=== PATIENT | male | born 1945 | race African-American/Black ===

== ENCOUNTER 2016-12-13 16:18 | Observation (INO) | payer SELFPAY ==
[2016-12-13 16:27] VITALS: BP 142/74; PULSE 65; RESP 17; TEMP 98.5; O2SAT 97
[2016-12-13 16:30] VITALS: RESP 14; O2SAT 95
--- NOTE | 2016-12-13 16:52 | RADRPT ---
EXAM DATE/TIME: 12/13/2016 16:31 [facility] COMPARISON: No previous studies available for comparison. INDICATIONS : Altered mental status today, unresponsive. RADIATION DOSE: 56.35 CTDIvol (mGy) MEDICAL HISTORY : Non-responsive. SURGICAL HISTORY : Non-responsive. ENCOUNTER: Initial ACUITY: 1 day PAIN SCALE: Non-responsive LOCATION: Bilateral head TECHNIQUE: Multiple contiguous axial images were obtained of the head. Using automated exposure control and adj ustment of the mA and/or kV according to patient size, radiation dose was kept as low as reasonably a chievable to obtain optimal diagnostic quality images. DICOM format image data is available electro nically for review and comparison. FINDINGS: CEREBRUM: Extensive periventricular low attenuation change involving both cerebral hemispheres. Area of encepha lomalacia involving the left upper parietal lobe. Area of encephalomalacia involving the insular sonali ex. The ventricles are normal for age. No evidence of midline shift, mass lesion, hemorrhage or acut e infarction. No extra-axial fluid collections are seen. POSTERIOR FOSSA: The cerebellum and brainstem are intact. The 4th ventricle is midline. The cerebellopontine angle i s unremarkable. EXTRACRANIAL: The visualized portion of the orbits is intact. The visualized portions of the left maxillary sinus a re completely opacified. SKULL: The calvaria is intact. No evidence of skull fracture. CONCLUSION: 1. No acute intracranial abnormality. 2. Extensive chronic small vessel ischemic change. 3. Encephalomalacia involving the MCA territory on the left. 4. Left maxillary sinus disease. Christoph Coleman Jr., MD on December 13, 2016 at 16:48 Board Certified Radiologist. This report was verified electronically.
--- NOTE | 2016-12-13 16:54 | RADRPT ---
EXAM DATE/TIME: 12/13/2016 16:46 [facility] COMPARISON: No previous studies available for comparison. INDICATIONS : Syncope. Possible stroke. MEDICAL HISTORY : Unobtainable. SURGICAL HISTORY : Unobtainable. ENCOUNTER: Initial ACUITY: 1 day PAIN SCORE: Non-responsive. LOCATION: Bilateral chest FINDINGS: The heart is mildly enlarged. The lungs demonstrate chronic interstitial changes but are otherwise cl ear. The bony structures are grossly intact. CONCLUSION: 1. Cardiomegaly. No acute abnormality identified. Julien Means MD on December 13, 2016 at 16:52 Board Certified Radiologist. This report was verified electronically.
[2016-12-13 17:51] LABS: AUTOMATED NEUTROPHIL # 4.2 TH/MM3 (1.8-7.7); BASOPHIL % 0.6 % (0.0-2.0); EOSINOPHIL # 0.1 TH/MM3 (0-0.4); EOSINOPHIL % 1.3 % (0.0-4.0); HEMATOCRIT 43.6 % (39.0-51.0); LYMPH % 19.6 % (9.0-44.0); LYMPHOCYTE # 1.1 TH/MM3 (1.0-4.8); MEAN CELL VOLUME 76.3 FL (80.0-100.0); MEAN CORPUSCULAR HEMOGLOBIN 24.8 PG (27.0-34.0); MEAN CORPUSCULAR HGB CONC 32.5 % (32.0-36.0); MONO % 6.2 % (0.0-8.0); NEUT % 72.3 % (16.0-70.0); PLATELET COUNT 226 TH/MM3 (150-450); RED BLOOD COUNT 5.71 MIL/MM3 (4.50-5.90); RED CELL DISTRIBUTION WIDTH 14.9 % (11.6-17.2); WHITE BLOOD COUNT 5.8 TH/MM3 (4.0-11.0)
[2016-12-13 17:52] LABS: ALT (GPT) 15 U/L (12-78)
[2016-12-13 17:53] LABS: HEMO FLAGS AUTO DIFF
[2016-12-13 17:56] LABS: INTERNATIONAL NORMALIZED RATIO 0.9 RATIO; PROTHROMBIN TIME - PATIENT 10.3 SEC (9.8-11.6)
[2016-12-13 18:03] LABS: ALKALINE PHOSPHATASE 106 U/L (45-117); ANION GAP 7 MEQ/L (5-15); AST (GOT) 27 U/L (15-37); BICARBONATE 26.9 MEQ/L (21.0-32.0); BLOOD UREA NITROGEN 14 MG/DL (7-18); CHLORIDE 106 MEQ/L (98-107); CREATINE KINASE 101 U/L (39-308); GLOMERULAR FILTRATION RATE 89 ML/MIN (>89); SODIUM (NA) 140 MEQ/L (136-145); TOTAL BILIRUBIN ADULT 0.4 MG/DL (0.2-1.0)
--- NOTE | 2016-12-13 18:11 | PD ---
HPI Chief Complaint: Seizure Time Seen by Provider: 16:30 Travel History International Travel<30 days: No Contact w/Intl Traveler<30days: No Traveled to known affect area: No History of Present Illness HPI 71-year-old male came to the emergency room brought by EMS after a witnessed syncopal episode while he was sitting with his . Patient was in the [facility] and was admitted there one week ago after a stroke from [facility]. As per the he has had expressive aphasia since the stroke. This has been very frustrating for him and he has been upset for past couple days. Was trying to explain something to her and when she didn't understand he started getting upset. Soon after that he seemed like he went to sleep and when she tried to wake him up he started to vomit. And after that he got unresponsive. The called the [facility] staff who called 911. When EMS arrived as per them his GCS was 6. On route GCS started to improve and got up to 12 or 13. Given his aphasia it was difficult to get much answer from him. Instead been stable. He was incontinent as per EMS. No lid bite her tongue bite. No previous history of seizures. [facility] Past Medical History Narrative Medical List of his past medical, surgical, social and family history is reviewed from the nursing note. Social History Tobacco Use: No Allergies-Medications (Allergen,Severity, Reaction): Coded Allergies: No Known Allergies (Unverified , 12/13/16) Comments No known drug allergies. Reported Meds & Prescriptions Reported Meds & Active Scripts Active Reported Amlodipine (Amlodipine Besylate) 10 Mg Tab 10 Mg PO DAILY Aspirin 325 Mg Tab 325 Mg PO DAILY Docusate Sodium 100 Mg Cap 100 Mg PO BID Lisinopril 2.5 Mg Tab 2.5 Mg PO DAILY Atorvastatin (Atorvastatin Calcium) 40 Mg Tab 40 Mg PO HS Omeprazole 20 Mg Cap Narrative Medication Awaiting for the nurse to do the medical reconciliation. Review of Systems Except as stated in HPI: all other systems reviewed are Neg Neurologic: Positive: Change in Mentation Physical Exam Narrative GENERAL: Eyes closed, maintaining his respirations, nonverbal, intact corneal reflex SKIN: Focused skin assessment warm/dry. HEAD: Atraumatic. Normocephalic. EYES: Pupils equal and round. No scleral icterus. No injection or drainage. ENT: No nasal bleeding or discharge. Mucous membranes pink and moist. NECK: Trachea midline. No JVD. CARDIOVASCULAR: Regular rate and rhythm. No murmur appreciated. RESPIRATORY: No accessory muscle use. Clear to auscultation. Breath sounds equal bilaterally. GASTROINTESTINAL: Abdomen soft, non-tender, nondistended. Hepatic and splenic margins not palpable. MUSCULOSKELETAL: No obvious deformities. No clubbing. No cyanosis. No edema. NEUROLOGICAL: Unable to assess GCS given the fact that patient keeps his eyes closed but when I try to open them he tries to squeeze them tight shot. Corneal reflexes present. Patient is maintaining his airway. He is nonverbal and hence difficult to assess speech. PSYCHIATRIC: Unable to assess Data Data Last Documented VS Orders Orders Electrocardiogram (12/13/16 16:30) Ammonia (12/13/16 16:30) Complete Blood Count With Diff (12/13/16 16:30) Comprehensive Metabolic Panel (12/13/16 16:30) Creatine Kinase (Cpk) (12/13/16 16:30) Prothrombin Time / Inr (Pt) (12/13/16 16:30) Troponin I (12/13/16 16:30) Thyroid Stimulating Hormone (12/13/16 16:30) Chest, Single Ap (12/13/16 16:30) Ct Brain W/O Iv Contrast(Rout) (12/13/16 16:30) Blood Glucose (12/13/16 16:30) Ecg Monitoring (12/13/16 16:30) Iv Access Insert/Monitor (12/13/16 16:30) Oximetry (12/13/16 16:30) ^ Saline Lock (12/13/16 16:32) Admit Order (Ed Use Only) (12/13/16 18:47) Labs Laboratory Tests Test 12/13/16 17:15 White Blood Count 5.8 TH/MM3 Red Blood Count 5.71 MIL/MM3 Hemoglobin 14.2 GM/DL Hematocrit 43.6 % Mean Corpuscular Volume 76.3 FL Mean Corpuscular Hemoglobin 24.8 PG Mean Corpuscular Hemoglobin Concent 32.5 % Red Cell Distribution Width 14.9 % Platelet Count 226 TH/MM3 Mean Platelet Volume 8.4 FL Neutrophils (%) (Auto) 72.3 % Lymphocytes (%) (Auto) 19.6 % Monocytes (%) (Auto) 6.2 % Eosinophils (%) (Auto) 1.3 % Basophils (%) (Auto) 0.6 % Neutrophils # (Auto) 4.2 TH/MM3 Lymphocytes # (Auto) 1.1 TH/MM3 Monocytes # (Auto) 0.4 TH/MM3 Eosinophils # (Auto) 0.1 TH/MM3 Basophils # (Auto) 0.0 TH/MM3 CBC Comment AUTO DIFF Differential Comment AUTO DIFF CONFIRMED Platelet Estimate NORMAL Platelet Morphology Comment CLUMPED Prothrombin Time 10.3 SEC Prothromb Time International Ratio 0.9 RATIO Blood Urea Nitrogen 14 MG/DL Creatinine 1.00 MG/DL Random Glucose 104 MG/DL Total Protein 7.5 GM/DL Albumin 3.5 GM/DL Calcium Level 8.5 MG/DL Alkaline Phosphatase 106 U/L Aspartate Amino Transf (AST/SGOT) 27 U/L Alanine Aminotransferase (ALT/SGPT) 15 U/L Total Bilirubin 0.4 MG/DL Sodium Level 140 MEQ/L Potassium Level 4.0 MEQ/L Chloride Level 106 MEQ/L Carbon Dioxide Level 26.9 MEQ/L Anion Gap 7 MEQ/L Estimat Glomerular Filtration Rate 89 ML/MIN Ammonia 40 MCMOL/L Total Creatine Kinase 101 U/L Troponin I LESS THAN 0.02 NG/ML Thyroid Stimulating Hormone 3rd Gen 0.619 uIU/ML MDM Medical Decision Making Medical Screen Exam Complete: Yes Emergency Medical Condition: Yes Medical Record Reviewed: Yes Interpretation(s) Twelve-lead EKG was reviewed by me. Normal sinus rhythm, normal axis, LVH, LV strain pattern. Heart rate of 63 bpm. Differential Diagnosis Intracranial bleed, syncope seizure, seizure and postictal Narrative Course 6:[address] scan does not show any acute bleed. Blood test results of back and within acceptable limits except for pneumonia that slightly elevated. UA is negative. Given the description of what the witnessed I'm concerned of syncopal episode. I would like to admit him for observation for syncope. I've explained this to the and the children and they understand. Procedures EKG Prior to Arrival: Yes Diagnosis Primary Impression: Syncope Qualified Codes: R55 - Syncope and collapse Additional Impression: Altered mental status Qualified Codes: R41.82 - Altered mental status, unspecified Admitting Information Admitting Physician Requests: Observation Scripts Memantine (Namenda) 5 Mg Tab 5 MG PO Q12HR for Dementia, #60 TAB Prov: Julien Riggs MD 12/15/16 Levetiracetam (Keppra) 500 Mg Tab 500 MG PO Q12HR for Seizure, #60 TAB Prov: Julien Riggs MD 12/15/16 Sanjiv Mo MD Dec 13, 2016 18:11
[2016-12-13 18:44] LABS: PLATELET ESTIMATE SMEAR NORMAL (NORMAL); PLATELET MORPHOLOGY CLUMPED (NORMAL); SCAN/DIFF AUTO DIFF CONFIRMED
[2016-12-13] MEDS ORDERED: IOHEXOL 350 MG/ML 10 ML VIAL (for RAD DIAG) IVCONTRAST ONE (18:50)
[2016-12-13] MEDS ORDERED: SODIUM CHLORIDE 0.9% FLUSH 10 ML FLUSH IV FLUSH PRN ×2 (19:00→19:45)
[2016-12-13] MEDS ORDERED: NALOXONE HCL 0.4 MG/ML AMP IV PUSH PRN ×2 (19:00→19:45)
[2016-12-13] MEDS ORDERED: MAGNESIUM HYDROXIDE SUSP 30 ML CUP PO PRN (19:00)
[2016-12-13] MEDS ORDERED: ONDANSETRON HCL 4 MG/2 ML VIAL IVP PRN (19:00)
[2016-12-13] MEDS ORDERED: ASPI325T PO (19:20)
[2016-12-13] MEDS ORDERED: ATOR40TA16 PO (19:20)
[2016-12-13] MEDS ORDERED: OMEP20CA2 (19:20)
[2016-12-13] MEDS ORDERED: LISI2.5T3 PO (19:20)
[2016-12-13] MEDS ORDERED: AMLO10TA2 PO (19:20)
[2016-12-13] MEDS ORDERED: DOCU100C PO (19:20)
[2016-12-13 19:59] VITALS: BP 133/69
[2016-12-13 20:37] VITALS: BP 143/69; PULSE 83; RESP 16; TEMP 97.4; O2SAT 96
[2016-12-13] MEDS: SODIUM CHLORIDE 0.9% FLUSH 10 ML FLUSH IV FLUSH SCH (21:00)
[2016-12-13] MEDS ORDERED: SODIUM CHLORIDE 0.9% FLUSH 10 ML FLUSH IV FLUSH SCH (21:00)
--- NOTE | 2016-12-13 21:17 | HHI.HP ---
[facility] No Primary Care Physician Admission Diagnosis syncope, altered mental status Diagnoses: Travel History International Travel<30 Days: No Contact w/Intl Traveler <30 Da: No Traveled to Known Affected Are: No History of Present Illness hx from patient's family members at the bedside- , daughter, niece? pt himself speaks samoan and understands samoan, but is aphasic/ dysarthric at baseline due to prior CVA. has been angry since tuesday trying to tell, but cant tell what tuesday, and today, family went to see him 1:00p.m today, he was eating took him outside to get air he is trying to explain somehting to family outside getting so mad mom thought he was sleeping looks he then threw up - woke him up from it and she woke him up and he was not responding saw some wet pants ems said pt had urine eyes were closed did not wake up though ems tried to rub his chest \ 2 weeks at [facility] no symptoms that they know of recenlty able to walk , uses a walker right side UE weakness, aphasic soft food, regular consistency liquid ministroke about 2 weeks ago 2 yrs ago- cva- left him with aphasic, Right sided weakness Review of Systems Except as stated in HPI: all other systems reviewed are Neg Past Family Social History Past Medical History CVA - 2 yrs ago CVA- [address] [facility] HTN Enlarged Prostate Past Surgical History TURP Allergies: Coded Allergies: No Known Allergies (Unverified , 12/13/16) Family History htn in family Social History no etoh/ smoking/ drugs Physical Exam Vital Signs Vital Signs Date Time Temp Pulse Resp B/P (MAP) Pulse Ox O2 Delivery O2 Flow Rate FiO2 12/13/16 20:37 97.4 83 16 143/69 (93) 96 12/13/16 19:59 74 18 133/69 (90) 98 12/13/16 16:30 14 95 Room Air 12/13/16 16:30 95 Room Air 12/13/16 16:27 98.5 65 17 142/74 (96) 97 Physical Exam GENERAL: This is a well-nourished, well-developed patient, in no apparent distress. SKIN: No rashes, ecchymoses or lesions. Cool and dry. HEAD: Atraumatic. Normocephalic. No temporal or scalp tenderness. EYES: No scleral icterus. No injection or drainage. ENT: Nose without bleeding, purulent drainage or septal hematoma. Airway patent. NECK: Trachea midline. No JVD CARDIOVASCULAR: Regular rate and rhythm without murmurs, gallops, or rubs. RESPIRATORY: Clear to auscultation. Breath sounds equal bilaterally. No wheezes , rales, or rhonchi. GASTROINTESTINAL: Abdomen soft, non-tender, nondistended. No guarding. MUSCULOSKELETAL: Extremities without clubbing, cyanosis, or edema. No calf tenderness. NEUROLOGICAL: Awake and alert. Dysarthria. Right upper extremity about 3 out of 5. Right lower extremity about 4 out of 5. No facial asymmetry. Not following commands though he seems to understand. Laboratory Laboratory Tests Test 12/13/16 17:15 White Blood Count 5.8 Red Blood Count 5.71 Hemoglobin 14.2 Hematocrit 43.6 Mean Corpuscular Volume 76.3 Mean Corpuscular Hemoglobin 24.8 Mean Corpuscular Hemoglobin Concent 32.5 Red Cell Distribution Width 14.9 Platelet Count 226 Mean Platelet Volume 8.4 Neutrophils (%) (Auto) 72.3 Lymphocytes (%) (Auto) 19.6 Monocytes (%) (Auto) 6.2 Eosinophils (%) (Auto) 1.3 Basophils (%) (Auto) 0.6 Neutrophils # (Auto) 4.2 Lymphocytes # (Auto) 1.1 Monocytes # (Auto) 0.4 Eosinophils # (Auto) 0.1 Basophils # (Auto) 0.0 CBC Comment AUTO DIFF Differential Comment AUTO DIFF CONFIRMED Platelet Estimate NORMAL Platelet Morphology Comment CLUMPED Prothrombin Time 10.3 Prothromb Time International Ratio 0.9 Blood Urea Nitrogen 14 Creatinine 1.00 Random Glucose 104 Total Protein 7.5 Albumin 3.5 Calcium Level 8.5 Alkaline Phosphatase 106 Aspartate Amino Transf (AST/SGOT) 27 Alanine Aminotransferase (ALT/SGPT) 15 Total Bilirubin 0.4 Sodium Level 140 Potassium Level 4.0 Chloride Level 106 Carbon Dioxide Level 26.9 Anion Gap 7 Estimat Glomerular Filtration Rate 89 Ammonia 40 Total Creatine Kinase 101 Troponin I LESS THAN 0.02 Thyroid Stimulating Hormone 3rd Gen 0.619 Result Diagram: 12/13/16 1715 12/13/16 1715 Imaging Last [address] 12/13/16 1630 Signed Impressions: Service Date/Time: Tuesday, December 13, 2016 16:31 - CONCLUSION: 1. No acute intracranial abnormality. 2. Extensive chronic small vessel ischemic change. 3. Encephalomalacia involving the MCA territory on the left. 4. Left maxillary sinus disease. Christoph Coleman Jr., MD Chest X-Ray 12/13/16 1630 Signed Impressions: Service Date/Time: Tuesday, December 13, 2016 16:46 - CONCLUSION: 1. Cardiomegaly. No acute abnormality identified. Julien Means MD Abdomen/Pelvis CT 12/13/16 0000 Signed Impressions: Service Date/Time: Wednesday, December 14, 2016 02:42 - CONCLUSION: 1. No evidence of acute abdominal or pelvic process. No masses are identified. MD Mann Sneed VTE Risk Assessment Caprini VTE Risk Assessment: Mod/High Risk (score >= 2) Caprini Risk Assessment Model Point Value = 1 Point Value = 2 Point Value = 3 Point Value = 5 Age 41-60 Minor surgery BMI > 25 kg/m2 Swollen legs Varicose veins or History of unexplained or recurrent spontaneous Oral contraceptives or hormone replacement Sepsis (< 1 month) Serious lung disease, including pneumonia (< 1 month) Abnormal pulmonary function Acute myocardial infarction Congestive heart failure (< 1 month) History of inflammatory bowel disease Medical patient at bed rest Age 61-74 Arthroscopic surgery Major open surgery (> 45 min) Laparoscopic surgery (> 45 min) Malignancy Confined to bed (> 72 hours) Immobilizing plaster cast Central venous access Age >= 75 History of VTE Family history of VTE Factor V Leiden Prothrombin [id number] Lupus anticoagulant Anticardiolipin antibodies Elevated serum homocysteine Heparin-induced thrombocytopenia Other congenital or acquired thrombophilia Stroke (< 1 month) Elective arthroplasty Hip, pelvis, or leg fracture Acute spinal cord injury (< 1 month) Prophylaxis Regimen Total Risk Factor Score Risk Level Prophylaxis Regimen 0-1 Low Early ambulation 2 Moderate Order ONE of the following: *Sequential Compression Device (SCD) *Heparin 5000 units SQ BID 3-4 Higher Order ONE of the following medications: *Heparin 5000 units SQ TID *Enoxaparin/Lovenox 40 mg SQ daily (WT < 150 kg, CrCl > 30 mL/min) *Enoxaparin/Lovenox 30 mg SQ daily (WT < 150 kg, CrCl > 10-29 mL/min) *Enoxaparin/Lovenox 30 mg SQ BID (WT < 150 kg, CrCl > 30 mL/min) AND/OR *Sequential Compression Device (SCD) 5 or more Highest Order ONE of the following medications: *Heparin 5000 units SQ TID (Preferred with Epidurals) *Enoxaparin/Lovenox 40 mg SQ daily (WT < 150 kg, CrCl > 30 mL/min) *Enoxaparin/Lovenox 30 mg SQ daily (WT < 150 kg, CrCl > 10-29 mL/min) *Enoxaparin/Lovenox 30 mg SQ BID (WT < 150 kg, CrCl > 30 mL/min) AND *Sequential Compression Device (SCD) Assessment and Plan Assessment and Plan Impression: Syncope versus seizures Possible vasovagal syndrome from vomiting Vomiting Limited historian given but he is aphasic/dysarthric History of recurrent CVAs History of BPH Plan: Obtain records from [facility]. This was obtained overnight and reviewed. Patient was started on anticoagulation with aspirin full dose unknown given that his prior infarct was extensive and MCA territory per family. Would consult patient's neurologist who saw him at [facility] EEG. We'll monitor for episodes of vomiting. patient is extremely poor historian. Family stated he has not been communicating verbally since the past 2 [address]. We'll check CT abdomen and pelvis to rule out intra-abdominal etiologies causing vomiting. Resume rest of his home medications. DVT prophylaxis with Lovenox. Discussed Condition With patient, , daughter, nursing staff Jim Alvarado MD Dec 13, 2016 21:17
[2016-12-13] MEDS ORDERED: PILL SPLITTER OTHER PRN (22:00)
[2016-12-13 22:21] VITALS: PULSE 79
[2016-12-13] MEDS: SODIUM CHLOR 0.9% 1000 ML INJ 1,000 ML IV SCH (23:53)
[2016-12-14] VITALS (8 sets, daily range): BP systolic 104–149; BP diastolic 56–91; PULSE 68–87; RESP 16–18; TEMP 97.8–101.7; O2SAT 92–98
[2016-12-14 00:26] LABS: CREATINE KINASE 61 U/L (39-308)
--- NOTE | 2016-12-14 03:02 | RADRPT ---
EXAM DATE/TIME: 12/14/2016 02:42 [facility] COMPARISON: No previous studies available for comparison. INDICATIONS : Diffuse abdominal pain with vomiting. IV CONTRAST: 95 cc Omnipaque 350 (iohexol) IV ORAL CONTRAST: No oral contrast ingested. RADIATION DOSE: 9.28 CTDIvol (mGy) MEDICAL HISTORY : Stroke. Hypertension. SURGICAL HISTORY : Prostatectomy. ENCOUNTER: Initial ACUITY: 1 day PAIN SCALE: Non-responsive LOCATION: Bilateral abdomen TECHNIQUE: Volumetric scanning of the abdomen and pelvis was performed. Using automated exposure control and ad justment of the mA and/or kV according to patient size, radiation dose was kept as low as reasonably achievable to obtain optimal diagnostic quality images. DICOM format image data is available electro nically for review and comparison. FINDINGS: There is left lower lobe atelectasis versus pneumonia. The liver and spleen are free of focal defects . The gallbladder and pancreas demonstrate no abnormality. The adrenal glands are normal. The kidneys demonstrate no evidence of solid renal mass or hydronephrosis. There is a single simple cyst in the left kidney measuring 2 cm No free fluid or abdominal masses are identified. No para-aortic adenopat hy is seen. Examination of the right lower quadrant demonstrates no abnormality. The appendix is iden tified and appears normal. Examination of the pelvis demonstrates no evidence of free fluid or pelvic mass. No abnormally enlarg ed inguinal or retroperitoneal lymph nodes are present. The bladder is unremarkable. The prostate gla nd is moderately enlarged impinging on the bladder base. CONCLUSION: 1. No evidence of acute abdominal or pelvic process. No masses are identified. Elroy Khan MD on December 14, 2016 at 2:57 Board Certified Radiologist. This report was verified electronically.
[2016-12-14 07:26] LABS: AUTOMATED NEUTROPHIL # 15.9 TH/MM3 (1.8-7.7); BASOPHIL % 0.2 % (0.0-2.0); EOSINOPHIL # 0.1 TH/MM3 (0-0.4); EOSINOPHIL % 0.3 % (0.0-4.0); HEMATOCRIT 38.9 % (39.0-51.0); HEMO FLAGS DIFF FINAL; LYMPH % 10.1 % (9.0-44.0); LYMPHOCYTE # 1.9 TH/MM3 (1.0-4.8); MEAN CELL VOLUME 75.4 FL (80.0-100.0); MEAN CORPUSCULAR HEMOGLOBIN 24.9 PG (27.0-34.0); MEAN CORPUSCULAR HGB CONC 33.1 % (32.0-36.0); MONO % 4.1 % (0.0-8.0); NEUT % 85.3 % (16.0-70.0); PLATELET COUNT 216 TH/MM3 (150-450); RED BLOOD COUNT 5.16 MIL/MM3 (4.50-5.90); RED CELL DISTRIBUTION WIDTH 14.7 % (11.6-17.2); WHITE BLOOD COUNT 18.6 TH/MM3 (4.0-11.0)
[2016-12-14 08:02] LABS: ANION GAP 7 MEQ/L (5-15); AST (GOT) 15 U/L (15-37); BICARBONATE 26.2 MEQ/L (21.0-32.0); BLOOD UREA NITROGEN 20 MG/DL (7-18); CHLORIDE 108 MEQ/L (98-107); GLOMERULAR FILTRATION RATE 112 ML/MIN (>89); POTASSIUM 3.9 MEQ/L (3.5-5.1); SODIUM (NA) 141 MEQ/L (136-145)
[2016-12-14 08:03] LABS: ALT (GPT) 17 U/L (12-78)
[2016-12-14] MEDS: SODIUM CHLOR 0.9% 1000 ML INJ 1,000 ML IV SCH ×2 (08:03→21:10)
[2016-12-14 08:07] LABS: ALKALINE PHOSPHATASE 87 U/L (45-117); TOTAL BILIRUBIN ADULT 0.6 MG/DL (0.2-1.0)
[2016-12-14 08:08] LABS: CREATINE KINASE 43 U/L (39-308)
--- NOTE | 2016-12-14 08:39 | PD.CONS ---
History of Present Illness Service Neurology Consult Requested By medical Reason for Consult syncope Primary Care Physician No Primary Care Physician History of Present Illness 71 y/o m admitted for syncope. had recent left mca stroke, aphasic. was upset yesterday. then became unresponsive, incontinent. evac called and brought to [facility] [place], [place]. pt unable to give any hx. ct brain- old left mca stroke. Past Family Social History Past Medical History left mca stroke - 2 yrs ago CVA- 2 weeks ago at [facility] HTN Enlarged Prostate Past Surgical History TURP Allergies: Coded Allergies: No Known Allergies (Unverified , 12/13/16) Family History htn in family Social History no etoh/ smoking/ drugs Review of Systems All other ROS: ROS reviewed as documented in chart Past Family Social History Allergies: Coded Allergies: No Known Allergies (Unverified , 12/13/16) Active Ordered Medications Current Medications Medications (Trade) Dose Ordered Sig/Ivan Route Start Time Stop Time Status Last Admin Sodium Chloride 1,000 ml @ 83 mls/hr Q12H3M IV 12/13/16 20:00 12/13/16 23:53 (NS Flush) 2 ml UNSCH PRN IV FLUSH 12/13/16 19:00 (NS Flush) 2 ml BID IV FLUSH 12/13/16 21:00 12/13/16 21:00 (Zofran Inj) 4 mg Q6H PRN IVP 12/13/16 19:00 (Narcan Inj) 0.4 mg UNSCH PRN IV PUSH 12/13/16 19:00 (Milk Of Magnesia Liq) 30 ml Q12H PRN PO 12/13/16 19:00 (Norvasc) 10 mg DAILY PO 12/14/16 09:00 (Aspirin) 325 mg DAILY PO 12/14/16 09:00 (Lipitor) 40 mg HS PO 12/14/16 21:00 (Colace) 100 mg BID PO 12/14/16 09:00 (Prinivil) 2.5 mg DAILY PO 12/14/16 09:00 (Pill Splitter) 1 ea UNSCH PRN OTHER 12/13/16 22:00 (Lovenox Inj) 40 mg Q24H SQ 12/14/16 09:00 UNV Exam I&O / VS Vital Signs Date Time Temp Pulse Resp B/P (MAP) Pulse Ox O2 Delivery O2 Flow Rate FiO2 12/14/16 08:00 99.0 80 16 121/56 (77) 97 12/14/16 03:19 100.2 87 18 126/60 (82) 94 12/14/16 00:54 101.7 83 18 104/56 (72) 92 12/13/16 22:21 79 12/13/16 20:37 97.4 83 16 143/69 (93) 96 12/13/16 19:59 74 18 133/69 (90) 98 12/13/16 16:30 14 95 Room Air 12/13/16 16:30 95 Room Air 12/13/16 16:27 98.5 65 17 142/74 (96) 97 Exam Comments lying in bed exp>comp aphasia, inconsistently following, eomi, resists pupillary exam, mild rt spastic hemiparesis, withdraws to tactile in all 4 ext, no involuntary movements Review/Management Diagnosis/Plan: (1) Syncope ICD Codes: R55 - Syncope and collapse Status: Acute Plan: poor hx at risk for post-stroke sz's recs eeg mri brain p.t./s.t. swallow exam start iv keppra (2) Chronic ischemic left MCA stroke ICD Codes: I69.30 - Unspecified sequelae of cerebral infarction Status: Chronic Plan: severe aphasia need old records f/u mri brain if feasible Problem Qualifiers (1) Syncope: Qualified Codes: R55 - Syncope and collapse Gaurav Schulz MD Dec 14, 2016 08:39
[2016-12-14] MEDS: SODIUM CHLORIDE 0.9% FLUSH 10 ML FLUSH IV FLUSH SCH ×2 (09:00→21:00)
[2016-12-14] MEDS: LISINOPRIL 5 MG TAB PO SCH (09:00)
[2016-12-14] MEDS: DOCUSATE SODIUM 100 MG CAP PO SCH ×2 (09:00→21:00)
[2016-12-14] MEDS: ASPIRIN 325 MG TAB PO SCH (09:00)
--- NOTE | 2016-12-14 10:41 | HHI.PR ---
Subjective Remarks No recurrence of episodes overnight. Patient is at baseline when seen and cannot provide a good history. Plan for carotid ultrasound, EEG, and PTT today. Objective Vital Signs Date Time Temp Pulse Resp B/P (MAP) Pulse Ox O2 Delivery O2 Flow Rate FiO2 12/14/16 08:00 99.0 80 16 121/56 (77) 97 12/14/16 03:19 100.2 87 18 126/60 (82) 94 12/14/16 00:54 101.7 83 18 104/56 (72) 92 12/13/16 22:21 79 12/13/16 20:37 97.4 83 16 143/69 (93) 96 12/13/16 19:59 74 18 133/69 (90) 98 12/13/16 16:30 14 95 Room Air 12/13/16 16:30 95 Room Air 12/13/16 16:27 98.5 65 17 142/74 (96) 97 Result Diagram: 12/14/16 0715 12/14/16 0715 Objective Remarks GENERAL: NAD, A&Ox1 HEAD: Normocephalic. NECK: Supple, trachea midline. No lymphadenopathy. EYES: No scleral icterus. No injection or drainage. CARDIOVASCULAR: Regular rate and rhythm without murmurs, gallops, or rubs. RESPIRATORY: Breath sounds equal bilaterally. No accessory muscle use. GASTROINTESTINAL: Abdomen soft, non-tender, nondistended. MUSCULOSKELETAL: No cyanosis, or edema. SKIN: Warm and dry. NEURO: No focal neurological deficitis. A/P Problem List: (1) Chronic ischemic left MCA stroke ICD Code: I69.30 - Unspecified sequelae of cerebral infarction Status: Chronic (2) Altered mental status ICD Code: R41.82 - Altered mental status, unspecified Status: Acute (3) Syncope ICD Code: R55 - Syncope and collapse Status: Acute Assessment and Plan Assessment and Plan 71-year-old male admitted for syncope versus seizure Syncope versus seizures EEG pending Carotid ultrasound pending Neurology following Monitor for any recurrence History of recurrent CVA Chronic right-sided deficit Physical therapy Follow clinically History of BPH No change to baseline treatment DVT prophylaxis Lovenox. Problem Qualifiers (1) Altered mental status: Qualified Codes: R41.82 - Altered mental status, unspecified (2) Syncope: Qualified Codes: R55 - Syncope and collapse Julien Riggs MD Dec 14, 2016 10:41
[2016-12-14] MEDS: ENOXAPARIN SODIUM 40 MG/0.4 ML SYRINGE SQ SCH (13:13)
--- NOTE | 2016-12-14 19:28 | MG ---
cc: YEHUDA LINARES MD Lab No: Date: 12/14/16 Age: Sex: M Race: DATE OF [address] Alvarado[address] MEDICAL HISTORY Witnessed syncopal episode, post-stroke expressive aphasia, hypertension. MEDICATIONS 1. Lipitor 2. Lovenox. 3. Norvasc. 4. Aspirin. 5. Lisinopril. DESCRIPTION At the beginning of the EEG recording, the patient was awake with slowing of the background in the theta and delta range. Background is superimposed by excess beta. There is intermittent triphasic waves. There is lower amplitude and generalized more slowing on the left hemisphere. There were no electrographic seizures or epileptiform discharges noted. Photic stimulation did elicit a normal driving response. Hyperventilation was not done. INTERPRETATION This is an abnormal awake and drowsy EEG. The left side slowing and lower amplitude may indicate a structural lesions on the left hemisphere. Triphasic waves may indicate a metabolic encephalopathy and generalized slowing also may indicate a mild to moderate encephalopathy. Excess beta activity is nonspecific finding that may be radicular related to medication adverse effects such as benzos and barbiturate. Absence of electrographic seizures or epileptiform discharges does not exclude the diagnosis of epilepsy. Clinical correlation is recommended. MD EDIS Quevedo/ /6:42 PM /7:15 PM [facility]
[2016-12-14] MEDS ORDERED: ATORVASTATIN 40 MG TAB PO SCH (21:00)
--- NOTE | 2016-12-14 21:07 | EKG ---
Date Performed: 12/13/2016 Time Performed: 16:28:32 PTAGE: 71 years EKG: Sinus rhythm LEFT VENTRICULAR HYPERTROPHY AND ST-T CHANGE ABNORMAL ECG NO PREVIOUS TRACING DOCTOR: Hank Amaya Interpretating Date/Time 12/14/2016 21:05:57
[2016-12-14] MEDS: levETIRAcetam INJ 500 MG in SODIUM CHLORIDE 0.9% INJ 100 ML IV SCH (21:10)
--- NOTE | 2016-12-14 21:25 | RADRPT ---
EXAM DATE/TIME: 12/14/2016 20:08 [facility] COMPARISON: CT BRAIN W/O CONTRAST, December 13, 2016, 16:31. INDICATIONS : Altered mental status. MEDICAL HISTORY : Hypertension. SURGICAL HISTORY : Prostate surgery ENCOUNTER: Initial ACUITY: 1 day PAIN SCORE: 0/10 LOCATION: head TECHNIQUE: Multiplanar, multisequence MRI of the brain was performed without contrast. FINDINGS: There is no evidence for intracranial hemorrhage, mass effect, mass lesions, edema, or extra-axial fl uid collections. There are no signs of acute infarction for technique. The diffusion portion is unre markable. Significant degree of brain atrophy is seen. Significant periventricular white matter lou ges are seen nonspecific mostly consistent with chronic small vessel ischemic changes. There is also extensive encephalomalacia in the left parietal and parts of the temporal lobe. There are lacunar inf arctions bilaterally extending to the brainstem. There is extensive opacification of the left maxilla ry sinus. CONCLUSION: Chronic changes and no evidence of acute infarction. Brett Melendez MD on December 14, 2016 at 21:21 Board Certified Radiologist. This report was verified electronically.
--- NOTE | 2016-12-14 21:26 | RADRPT ---
EXAM DATE/TIME: 12/14/2016 20:08 [facility] COMPARISON: MRI BRAIN W/O CONTRAST, December 14, 2016, 20:08. INDICATIONS : Altered mental status. MEDICAL HISTORY : Hypertension. SURGICAL HISTORY : Prostate surgery. ENCOUNTER: Initial ACUITY: 1 day PAIN SCORE: 0/10 LOCATION: head Please note a normal MRA of the brain does not entirely exclude the possibility of a small aneurysm, nor the possibility of distal intracranial vessel disease. TECHNIQUE: 3D time of flight MRA was performed. Source images, multiplanar STS MIP, and 3D volume MIP reconstru ctions were reviewed. FINDINGS: No significant vascular malformations, vessel truncation or aneurysmal dilatations are seen except fo r moderate atherosclerotic changes involving multiple branches bilaterally mainly the MCAs. CONCLUSION: Moderate atherosclerotic changes of distal branches bilaterally. Brett Melendez MD on December 14, 2016 at 21:23 Board Certified Radiologist. This report was verified electronically.
[2016-12-15 03:44] VITALS: BP 134/72; PULSE 73; RESP 17; TEMP 98.3; O2SAT 97
[2016-12-15] MEDS: levETIRAcetam INJ 500 MG in SODIUM CHLORIDE 0.9% INJ 100 ML IV SCH (06:37)
[2016-12-15] MEDS: SODIUM CHLOR 0.9% 1000 ML INJ 1,000 ML IV SCH (08:09)
--- NOTE | 2016-12-15 08:26 | HHI.PR ---
Review/Management Diagnosis/Plan: (1) Vascular dementia ICD Codes: F01.50 - Vascular dementia without behavioral disturbance Status: Chronic Plan: will start namenda 5mg bid add aricept after- outpatient (2) Syncope ICD Codes: R55 - Syncope and collapse Status: Acute Plan: poor hx at risk for post-stroke sz's mri- old infarct. mra brain- advanced atherosclerotic dz recs eeg- no active sz's ?elevated wbc- per medical. consider u/a lactulose for elevated nh3 p.t./s.t. swallow exam iv keppra- can change to po once tolerating d/c planning today (3) Chronic ischemic left MCA stroke ICD Codes: I69.30 - Unspecified sequelae of cerebral infarction Status: Chronic Plan: comp aphasia moderate sized left mca stroke inf division and left midline, mild on right- all old Subjective Subjective Comments No acute events reported Active Medications Current Medications Medications (Trade) Dose Ordered Sig/Ivan Route Start Time Stop Time Status Last Admin Sodium Chloride 1,000 ml @ 83 mls/hr Q12H3M IV 12/13/16 20:00 12/14/16 21:10 (NS Flush) 2 ml UNSCH PRN IV FLUSH 12/13/16 19:00 (NS Flush) 2 ml BID IV FLUSH 12/13/16 21:00 12/13/16 21:00 (Zofran Inj) 4 mg Q6H PRN IVP 12/13/16 19:00 (Narcan Inj) 0.4 mg UNSCH PRN IV PUSH 12/13/16 19:00 (Milk Of Magnesia Liq) 30 ml Q12H PRN PO 12/13/16 19:00 (Norvasc) 10 mg DAILY PO 12/14/16 09:00 (Aspirin) 325 mg DAILY PO 12/14/16 09:00 (Lipitor) 40 mg HS PO 12/14/16 21:00 (Colace) 100 mg BID PO 12/14/16 09:00 (Prinivil) 2.5 mg DAILY PO 12/14/16 09:00 (Pill Splitter) 1 ea UNSCH PRN OTHER 12/13/16 22:00 (Lovenox Inj) 40 mg Q24H SQ 12/14/16 10:00 12/14/16 13:13 Levetriacetam 500 mg/Sodium Chloride 105 ml @ 400 mls/hr Q12H IV 12/14/16 17:00 12/15/16 06:37 Allergies Allergies Coded Allergies No Known Allergies ([id number]/17) Review of Systems All other ROS: ROS reviewed as documented in chart Exam I&O / VS 12/15/16 12/15/16 12/16/16 15:00 23:00 07:00 Intake Total 105 ml Balance 105 ml IV Total 105 ml Vital Signs Date Time Temp Pulse Resp B/P (MAP) Pulse Ox O2 Delivery O2 Flow Rate FiO2 12/15/16 03:44 98.3 73 17 134/72 (92) 97 12/14/16 23:30 98.5 74 18 139/91 (107) 98 12/14/16 21:07 98.7 78 18 149/80 (103) 92 12/14/16 21:00 77 12/14/16 16:00 97.8 78 18 142/63 (89) 98 12/14/16 12:00 99.7 68 18 119/58 (78) 95 Exam Comments more alert, comprehensive aphasia today, non-sensical speech, not following, eomi, ou 3-2mm, mild rt spastic hemiparesis, withdraws to tactile in all 4 ext, no involuntary movements Problem Qualifiers (1) Vascular dementia: Qualified Codes: F01.51 - Vascular dementia with behavioral disturbance (2) Syncope: Qualified Codes: R55 - Syncope and collapse Gaurav Schulz MD Dec 15, 2016 08:26
[2016-12-15 08:35] LABS: AUTOMATED NEUTROPHIL # 7.5 TH/MM3 (1.8-7.7); BASOPHIL % 0.4 % (0.0-2.0); EOSINOPHIL # 0.2 TH/MM3 (0-0.4); EOSINOPHIL % 2.2 % (0.0-4.0); HEMATOCRIT 38.2 % (39.0-51.0); HEMO FLAGS DIFF FINAL; LYMPH % 16.1 % (9.0-44.0); LYMPHOCYTE # 1.6 TH/MM3 (1.0-4.8); MEAN CELL VOLUME 75.8 FL (80.0-100.0); MEAN CORPUSCULAR HEMOGLOBIN 25.2 PG (27.0-34.0); MEAN CORPUSCULAR HGB CONC 33.2 % (32.0-36.0); MONO % 5.9 % (0.0-8.0); NEUT % 75.4 % (16.0-70.0); PLATELET COUNT 201 TH/MM3 (150-450); RED BLOOD COUNT 5.04 MIL/MM3 (4.50-5.90)
[2016-12-15 08:42] VITALS: BP 177/81
[2016-12-15] MEDS: DOCUSATE SODIUM 100 MG CAP PO SCH (08:44)
[2016-12-15] MEDS: LISINOPRIL 5 MG TAB PO SCH (08:44)
[2016-12-15] MEDS: SODIUM CHLORIDE 0.9% FLUSH 10 ML FLUSH IV FLUSH SCH (08:45)
[2016-12-15] MEDS: ASPIRIN 325 MG TAB PO SCH (08:45)
[2016-12-15 08:59] VITALS: BP 160/96; PULSE 77; RESP 20; TEMP 97.6; O2SAT 91
[2016-12-15 09:00] LABS: ANION GAP 6 MEQ/L (5-15); AST (GOT) 20 U/L (15-37); BICARBONATE 27.1 MEQ/L (21.0-32.0); BLOOD UREA NITROGEN 12 MG/DL (7-18); CHLORIDE 108 MEQ/L (98-107); GLOMERULAR FILTRATION RATE 157 ML/MIN (>89); POTASSIUM 3.6 MEQ/L (3.5-5.1); SODIUM (NA) 141 MEQ/L (136-145)
[2016-12-15] MEDS ORDERED: MEMANTINE HCL 5 MG TAB PO SCH (09:00)
[2016-12-15] MEDS ORDERED: LACTULOSE SYRUP 20 GM/30 ML CUP PO SCH (09:00)
[2016-12-15 09:02] LABS: ALT (GPT) 13 U/L (12-78)
[2016-12-15 09:05] LABS: ALKALINE PHOSPHATASE 86 U/L (45-117); TOTAL BILIRUBIN ADULT 0.9 MG/DL (0.2-1.0)
[2016-12-15] MEDS ORDERED: NAME5TAB2 PO (09:56)
[2016-12-15] MEDS ORDERED: LEVE500 PO (09:56)
[2016-12-15] MEDS: ENOXAPARIN SODIUM 40 MG/0.4 ML SYRINGE SQ SCH (10:00)
--- NOTE | 2016-12-15 10:01 | HHI.DS ---
Discharge Summary Admission Date Dec 13, 2016 at 18:49 Discharge Date: Dec 15, 2016 Admitting Diagnosis syncope, altered mental status (1) Vascular dementia ICD Code: F01.50 - Vascular dementia without behavioral disturbance Status: Chronic (2) Altered mental status ICD Code: R41.82 - Altered mental status, unspecified Status: Acute Procedures EEG Brief History - From Admission has been angry since tuesday trying to tell, but cant tell what tuesday, and today, family went to see him 1:00p.m today, he was eating took him outside to get air he is trying to explain somehting to family outside getting so mad mom thought he was sleeping looks he then threw up - woke him up from it and she woke him up and he was not responding saw some wet pants ems said pt had urine eyes were closed did not wake up though ems tried to rub his chest \ 2 weeks at [facility] no symptoms that they know of recenlty able to walk , uses a walker right side UE weakness, aphasic soft food, regular consistency liquid ministroke about 2 weeks ago 2 yrs ago- cva- left him with aphasic, Right sided weakness CBC/BMP: 12/15/16 0707 12/15/16 0757 Significant Findings Laboratory Tests Test 12/13/16 17:15 12/13/16 23:50 12/14/16 07:15 12/15/16 07:07 Mean Corpuscular Volume 76.3 FL (80.0-100.0) 75.4 FL (80.0-100.0) 75.8 FL (80.0-100.0) Mean Corpuscular Hemoglobin 24.8 PG (27.0-34.0) 24.9 PG (27.0-34.0) 25.2 PG (27.0-34.0) Neutrophils (%) (Auto) 72.3 % (16.0-70.0) 85.3 % (16.0-70.0) 75.4 % (16.0-70.0) Platelet Morphology Comment CLUMPED (NORMAL) Ammonia 40 MCMOL/L (11-32) Troponin I LESS THAN 0.02 NG/ML LESS THAN 0.02 NG/ML LESS THAN 0.02 NG/ML White Blood Count 18.6 TH/MM3 (4.0-11.0) Hemoglobin 12.8 GM/DL (13.0-17.0) 12.7 GM/DL (13.0-17.0) Hematocrit 38.9 % (39.0-51.0) 38.2 % (39.0-51.0) Neutrophils # (Auto) 15.9 TH/MM3 (1.8-7.7) Blood Urea Nitrogen 20 MG/DL (7-18) Albumin 3.0 GM/DL (3.4-5.0) Calcium Level 8.4 MG/DL (8.5-10.1) Chloride Level 108 MEQ/L (98-107) Test 12/15/16 07:57 Random Glucose 72 MG/DL (74-106) Albumin 3.0 GM/DL (3.4-5.0) Calcium Level 8.3 MG/DL (8.5-10.1) Chloride Level 108 MEQ/L (98-107) Hospital Course Mr. Frances is a 71 year old male. At baseline he has a right hemiplegia and expressive aphasia from a previous CVA. He was brought in by family due to altered mental status. Etiology was possible seizure activity vs. syncope. No findings of arrhythmia or syncopal risk on work up. No CVA on work up. EEG shows abnormality and given his prior CVA and scar tissue, seizure is a likely etiology. Keppra has been started as a treatment. He is back to his prior baseline. He passes a speech therapy swallow evaluation. Medically stable for discharge to home today. Pt Condition on Discharge: Stable Discharge Disposition: Discharge Home Discharge Time: <= 30 minutes Discharge Instructions DIET: Follow Instructions for: As Tolerated, No Restrictions Activities you can perform: Regular-No Restrictions Follow up Referrals: PCP Follow-up - 2 Weeks New Medications: Levetiracetam (Keppra) 500 Mg Tab 500 MG PO Q12HR for Seizure, #60 TAB Memantine (Namenda) 5 Mg Tab 5 MG PO Q12HR for Dementia, #60 TAB Continued Medications: Amlodipine (Amlodipine) 10 Mg Tab 10 MG PO DAILY for Blood Pressure Management, #30 TAB 0 Refills Aspirin (Aspirin) 325 Mg Tab 325 MG PO DAILY, #30 TAB 0 Refills Atorvastatin (Atorvastatin) 40 Mg Tab 40 MG PO HS for Cholesterol Management, #30 TAB 0 Refills Docusate Sodium (Docusate Sodium) 100 Mg Cap 100 MG PO BID for Prevent Constipation, #60 CAP 0 Refills Lisinopril (Lisinopril) 2.5 Mg Tab 2.5 MG PO DAILY, #30 TAB 0 Refills Omeprazole (Omeprazole) 20 Mg Cap Julien Riggs MD Dec 15, 2016 10:01
[2016-12-15] MEDS ORDERED: levETIRAcetam 500 MG TAB PO SCH (21:00)
== END 2016-12-15 14:03 | disposition home or self-care (01) ==
LOC: NEPC 16:18 → NEDH 18:49 → NEPGCP 20:22
PROVIDERS: ADMIT Hospitalist; ATTEND Hospitalist
DX: F01.50 Vascular dementia, unspecified severity, without behavioral disturbance, psychotic disturbance, mood disturbance, and anxiety (principal); I69.320 Aphasia following cerebral infarction; R55 Syncope and collapse; R41.82 Altered mental status, unspecified; R56.9 Unspecified convulsions; I69.351 Hemiplegia and hemiparesis following cerebral infarction affecting right dominant side; I10 Essential (primary) hypertension; I51.7 Cardiomegaly; N40.0 Benign prostatic hyperplasia without lower urinary tract symptoms; Z79.899 Other long term (current) drug therapy
CPT/HCPCS: 70450; 70544; 70551; 71010; 74177; 80053; 82140; 82550; 84443; 84484; 85025; 85610; 92523; 93005; 95819; 96361; 96365; 96366; 96372; 97162; 99285; G0378; G8987; G8988; J1650; J1953; J7030; Q9967